=== PATIENT | male | born 1995 | race Caucasian/White ===

== ENCOUNTER 2019-04-04 11:02 | Emergency (ER) | payer SELFPAY ==
--- NOTE | 2019-04-04 11:12 | PDOC ---
History of Present Illness - General Chief Complaint: Headache Stated Complaint: HEADACHE Time Seen by Provider: 04/04/19 11:10 History Source: Patient - History of Present Illness Initial Comments: 04/04/19 12:10 Chief complaint: Head injury Patient is a healthy 23-year-old male who states cabinet fell and hit him in the head last Saturday, he was feeling fine until 3 days ago when he started getting worsening headaches that came and went. Some nausea. Headache was worse this morning. Patient denies any loss of consciousness. Patient also has a scrape on the right arm. Patient is ambulatory. Patient is requesting tetanus. He was requesting flu vaccine also GENERAL/CONSTITUTIONAL: No fever, weakness. dizziness HEAD, EYES, EARS, NOSE AND THROAT: No change in vision. No ear pain or discharge. No sore throat. CARDIOVASCULAR: No chest pain RESPIRATORY: No shortness of breath or cough GASTROINTESTINAL: No pain, nausea, vomiting, diarrhea or constipation GENITOURINARY: No dysuria MUSCULOSKELETAL: No neck or back pain SKIN: No rash NEUROLOGIC: +headache, no: Vertigo, loss of consciousness, or loss of sensation. GENERAL: The patient is awake, alert, and fully oriented, in no acute distress. HEAD: Normal with no signs of trauma. EYES: Pupils equal, round and reactive to light, sclera anicteric, conjunctiva clear. ENT: pharynx: no erythema, no exudate, uvula midline NECK: supple CHEST: clear, nontender, rr ABD: soft, nontender BACK: no tenderness or signs of injury EXTREMITIES: Right forearm with 4 x 3 cm superficial abrasion, healing, no signs of infection, rest of extremities, normal range of motion, no edema. NEUROLOGICAL: Normal speech, normal gait. Cranial nerves II through XII grossly intact, no gross focal abnormalities SKIN: Warm, Dry Past History - Past Medical History Allergies/Adverse Reactions: Allergies Allergy/AdvReac Type Severity Reaction Status Date / Time No Known Allergies Allergy Verified 04/04/19 11:05 - Psycho Social/Smoking Cessation Hx Smoking History: Never smoked *Physical Exam - Vital Signs Last Vital Signs Temp Pulse Resp BP Pulse Ox 98.5 F 82 18 109/82 99 04/04/19 11:05 04/04/19 11:05 04/04/19 11:05 04/04/19 11:05 04/04/19 11:05 Medical Decision Making - Medical Decision Making 04/04/19 12:12 23-year-old male with head injury with worsening headache. Patient will get head CT. Most likely concussive symptoms patient has a scrape on his arm is requesting tetanus. Patient was also requesting flu vaccine. It was explained to him how to get a flu vaccine. 04/04/19 12:12 04/04/19 12:[address] is negative, patient is neurologically intact Discussed issues, findings, results, applicable medications and treatments and follow-up. All these were understood and all questions were answered 04/04/19 12:52 Discharge - Discharge Information Problems reviewed: Yes Clinical Impression/Diagnosis: Abrasion of arm, right Concussion Qualifiers: Encounter type: initial encounter Loss of consciousness presence/duration: without LOC Qualified Code(s): S06.0X0A - Concussion without loss of consciousness, initial encounter Condition: Good Disposition: HOME - Admission No - Additional Discharge Information Prescription Drug Monitoring Program (I-STOP) results: I-STOP not reviewed - Follow up/Referral Referrals: Enmanuel Fernandez MD [Staff Physician] - - Patient Discharge Instructions Patient Printed Discharge Instructions: Postconcussion Syndrome Additional Instructions: Return to the nearest ER if worsening headache, nausea, vomiting, unsteady or worsening symptoms. You can take Tylenol 650 mg every 4 hours or motrin 600 mg every 6 hours for headache. Limit reading, computer worker, videogames, texting which can make symptoms worse. Followup with your doctor as instructed For your arm: Clean with soap and water 2-3 times daily, apply bacitracin Have her reevaluated if redness, pus, fever or getting worse Followup with your doctor Regrese a la curtis de emergencias ms cercana si empeora el dolor de ariella, las nuseas, los vmitos, los sntomas inestables o empeoran. Puede dell Tylenol 650 mg cada 4 horas o motrin 600 mg cada 6 horas para el dolor de ariella. Limite la lectura, el trabajador de la computadora, los videojuegos y los mensajes de texto que pueden empeorar los sntomas. Seguimiento con yang mdico segn las instrucciones. Para yang brazo: Limpie con agua y jabn 2-3 veces al da, aplique bacitracina Vera que la reevalen si hay enrojecimiento, pus, fiebre o empeora Seguimiento con yang mdico. Print Language: SINHALA - Post Discharge Activity
[2019-04-04 11:13] VITALS: BP 109/82; PULSE 82; TEMP 98.5; BMI 26.6
[2019-04-04] MEDS ORDERED: DIPHTH,PERTUSS(ACELL),TET 0.5 ML DISP.SYRIN IM ONE ×2 (11:21→11:25)
== END 2019-04-04 12:25 | disposition home or self-care (01) ==
LOC: JERFT 11:02
PROC: 3E0234Z Introduction of Serum, Toxoid and Vaccine into Muscle, Percutaneous Approach (ICD-10-PCS; principal; 2019-04-04)
DX: S06.0X0A Concussion without loss of consciousness, initial encounter (principal)
CPT/HCPCS: 70450-TC; 90715; 99281-25

== ENCOUNTER 2019-11-21 10:08 | Emergency (ER) | payer OTHER ==
[2019-11-21 10:22] VITALS: BP 136/65; PULSE 71; TEMP 98.7; BMI 28.8
[2019-11-21] MEDS ORDERED: SODIUM CHLORIDE 0.9% 500 ML INFUS.BAG IV ONE (10:42)
[2019-11-21] MEDS ORDERED: KETOROLAC TROMETHAMINE 30 MG/1 ML VIAL IVPUSH ONE (10:42)
[2019-11-21] MEDS ORDERED: METOCLOPRAMIDE HCL INJECTION 10 MG/2 ML VIAL IVPUSH ONE (10:43)
[2019-11-21] MEDS ORDERED: METOCLOPRAMIDE HCL INJECTION 10 MG/2 ML VIAL ONE (11:03)
[2019-11-21] MEDS ORDERED: KETOROLAC TROMETHAMINE 30 MG/1 ML VIAL ONE (11:03)
--- NOTE | 2019-11-21 11:09 | PDOC ---
History of Present Illness - General Chief Complaint: Headache Stated Complaint: HEADACHE Time Seen by Provider: 11/21/19 10:19 History Source: Patient Exam Limitations: No Limitations - History of Present Illness Initial Comments: 11/21/19 11:06 24-year-old male denies past medical history presents complaining of intermittent occipital throbbing headache for 6 days. Had a head injury March [address] at that time. 6 days ago states he was playing soccer outside when headache began. Denies head trauma, nausea, vomiting, changes in vision, weakness, paresthesias, fever, chills, abdominal pain, chest pain, shortness of breath or any other complaints. ROS: as above PE: GENERAL: well-appearing, NAD HEAD: NCAT EYES: Pupils equal, round and reactive to light, sclera anicteric, conjunctiva clear ENT: pharynx: no erythema, no exudate, uvula midline NECK: supple CHEST: nontender RESP: clear, no w/r/r CARDIO: rrr, no m/g/r ABD: +BS, soft, nontender, non distended BACK: no midline spinal ttp, no CVAT EXTREMITIES: Normal range of motion, no edema NEUROLOGICAL: Normal speech, normal gait SKIN: Warm, Dry Is this a multiple visit Asthma Patient?: No Past History - Medical History Allergies/Adverse Reactions: Allergies Allergy/AdvReac Type Severity Reaction Status Date / Time No Known Allergies Allergy Verified 11/21/19 10:10 Home Medications: Ambulatory Orders NK [No Known Home Medication] 11/21/19 - Psycho-Social/Smoking History Smoking History: Never smoked - Substance Abuse Hx (Audit-C & DAST Scrn) How often the patient has a drink containing alcohol: Never Score: In Men: 4 or > Positive; In Women: 3 or > Positive: 0 Screen Result (Pos requires Nsg. Audit-10AR): Negative In the last yr the pt used illegal drug/Rx for NonMed reason: No Score: Yes response is considered Positive: 0 Screen Result (Positive result requires Nsg. DAST-10): Negative *Physical Exam - Vital Signs Last Vital Signs Temp Pulse Resp BP Pulse Ox 98.7 F 71 16 136/65 97 11/21/19 10:11 11/21/19 10:11 11/21/19 10:11 11/21/19 10:11 11/21/19 10:11 ED Treatment Course - LABORATORY CBC & Chemistry Diagram: 11/21/19 11:00 11/21/19 11:00 - RADIOLOGY Radiology Studies Ordered: Category Date Time Status HEAD CT WITHOUT CONTRAST [CT] Stat CT Scan 11/21/19 10:43 Taken - Medications Given in the ED: ED Medications Discontinued Medications Generic Name Dose Route Start Last Admin Trade Name Trent PRN Reason Stop Dose Admin Ketorolac Tromethamine 30 mg 11/21/19 10:42 11/21/19 11:04 Toradol Injection - IVPUSH 11/21/19 10:43 30 mg ONCE ONE Administration Metoclopramide HCl 10 mg 11/21/19 10:43 11/21/19 11:04 Reglan Injection - IVPUSH 11/21/19 10:44 10 mg ONCE ONE Administration Sodium Chloride 1,000 ml 11/21/19 10:42 11/21/19 11:04 Normal Saline - IV 11/21/19 10:43 1,000 ml ONCE ONE Administration Medical Decision Making - Medical Decision Making 11/21/19 11:09 24-year-old male denies past medical history presents complaining of intermittent occipital throbbing headache for 6 days. Had a head injury March [address] at that time. 6 days ago states he was playing soccer outside when headache began. Denies head trauma, nausea, vomi ting, changes in vision, weakness, paresthesias, fever, chills, abdominal pain, chest pain, shortness of breath or any other complaints. Neurologically intact Head CT CBC, CMP IV fluids Antiemetic Analgesia Reassess 11/21/19 12:[address] and lab results with patient LFTs hemolyzed Patient feels better after IV fluids, antiemetic and analgesia Patient is ambulatory Advised to follow-up with PMD Return precautions discussed Discharge - Discharge Information Problems reviewed: Yes Clinical Impression/Diagnosis: Head ache Qualifiers: Headache type: unspecified Headache chronicity pattern: unspecified pattern Intractability: not intractable Qualified Code(s): R51 - Headache Condition: Stable Disposition: HOME - Admission No - Follow up/Referral - Patient Discharge Instructions Additional Instructions: Remain hydrated, take acetaminophen 975 mg every 6 hours as needed Follow-up with a primary care physician Return to ED if worsening headache, vomiting, nausea, changes in vision or any concerning symptoms - Post Discharge Activity
[2019-11-21 11:28] LABS: BASO % 0.8 % (0-2.0); EOS % 1.8 % (0-4.5); HEMATOCRIT 47.9 % (35.4-49); HEMOGLOBIN 16.5 GM/dL (11.7-16.9); LYMPH % 47.6 % (8-40); MCHC 34.5 g/dl (32.0-35.9); MEAN CELL VOLUME 89.9 fl (80-96); MEAN PLT VOLUME 8.4 fl (7.5-11.1); MONO % 6.9 % (3.8-10.2); NEUT % 42.9 % (42.8-82.8); PLATELET COUNT 299 K/MM3 (134-434); RBC 5.33 M/mm3 (4.00-5.60); RDW 13.6 % (11.9-15.9); WHITE BLOOD COUNT 8.3 K/mm3 (4.0-10.0)
[2019-11-21 11:54] LABS: BILIRUBIN,TOTAL 0.6 mg/dL (0.2-1); BLOOD UREA NITROGEN 11.6 mg/dL (7-18); CREATININE 0.9 mg/dL (0.55-1.3); POTASSIUM 4.1 mmol/L (3.5-5.1); TOT PROT 7.8 g/dl (6.4-8.2)
== END 2019-11-21 12:11 | disposition home or self-care (01) ==
LOC: JER 10:08
PROC: 3E033NZ Introduction of Analgesics, Hypnotics, Sedatives into Peripheral Vein, Percutaneous Approach (ICD-10-PCS; principal; 2019-11-21)
PROC: 3E033GC Introduction of Other Therapeutic Substance into Peripheral Vein, Percutaneous Approach (ICD-10-PCS; 2019-11-21)
DX: R51 Headache (principal)
CPT/HCPCS: 36415; 70450-TC; 80053; 85025; 99285-25

== ENCOUNTER 2020-07-15 09:58 | Emergency (ER) | payer OTHER ==
[2020-07-15 10:13] VITALS: BP 126/64; PULSE 80; TEMP 98; BMI 26.4
[2020-07-15] MEDS ORDERED: CEPHALEXIN MONOHYDRATE 500 MG CAPSULE (UD) PO ONE (11:24)
[2020-07-15] MEDS ORDERED: CEPHALEXIN MONOHYDRATE 500 MG CAPSULE (UD) ONE (11:35)
== END 2020-07-15 11:53 | disposition home or self-care (01) ==
LOC: JERFT 09:58 → EDBD 09:58 → JERFT 11:53
PROC: 0HQGXZZ Repair Left Hand Skin, External Approach (ICD-10-PCS; principal; 2020-07-15)
DX: S61.102A Unspecified open wound of left thumb with damage to nail, initial encounter (principal); S61.112A Laceration without foreign body of left thumb with damage to nail, initial encounter
CPT/HCPCS: 73140-TC-LT-FY; 99283-25